=== PATIENT | female | born 1990 | race Caucasian/White ===

== ENCOUNTER 2016-11-19 22:27 | Emergency (ER) | payer MEDICAID ==
[2016-11-19] MEDS ORDERED: PYRIDOXINE 100 MG TABLET PO STA (22:33)
[2016-11-19] MEDS ORDERED: DOXYLAMINE 25 MG TABLET PO STA (22:34)
[2016-11-19] MEDS ORDERED: diphenhydrAMINE 25 MG CAPSULE PO STA (22:58)
[2016-11-19] MEDS ORDERED: ACETAMINOPHEN 500 MG TABLET PO STA (23:05)
[2016-11-19] MEDS ORDERED: diphenhydrAMINE 25 MG CAPSULE PO ONE (23:05)
[2016-11-19] MEDS ORDERED: ACETAMINOPHEN 500 MG TABLET PO ONE (23:09)
== END 2016-11-20 00:21 | disposition home or self-care (01) ==
DX: O21.0 Mild hyperemesis gravidarum (principal); Z3A.11 11 weeks gestation of pregnancy; O26.891 Other specified pregnancy related conditions, first trimester; R10.32 Left lower quadrant pain; O99.331 Smoking (tobacco) complicating pregnancy, first trimester
CPT/HCPCS: 76705; 81003; 81025; 99282; 99284; A9270

== ENCOUNTER 2016-12-26 09:46 | Outpatient (CLI) | payer MEDICAID | END 2016-12-26 09:47 | disposition home or self-care (01) | DX: Z36 Encounter for antenatal screening of mother (principal) ==

== ENCOUNTER 2017-01-27 21:19 | Outpatient (CLI) | payer MEDICAID | END 2017-01-27 23:15 | disposition home or self-care (01) | DX: O99.89 Other specified diseases and conditions complicating pregnancy, childbirth and the puerperium (principal); R10.32 Left lower quadrant pain; R10.814 Left lower quadrant abdominal tenderness; Z3A.21 21 weeks gestation of pregnancy ==

== ENCOUNTER 2017-01-31 12:04 | Outpatient (CLI) | payer MEDICAID | END 2017-01-31 12:05 | disposition home or self-care (01) | DX: Z34.82 Encounter for supervision of other normal pregnancy, second trimester (principal) ==

== ENCOUNTER 2017-03-08 09:35 | Outpatient (CLI) | payer MEDICAID | END 2017-03-08 09:36 | disposition home or self-care (01) | DX: Z36 Encounter for antenatal screening of mother (principal) ==

== ENCOUNTER 2017-03-09 09:26 | Outpatient (CLI) | payer MEDICAID | END 2017-03-09 09:27 | disposition home or self-care (01) | DX: O99.810 Abnormal glucose complicating pregnancy (principal) ==

== ENCOUNTER 2017-03-23 16:08 | Emergency (ER) | payer MEDICAID ==
[2017-03-23 16:17] VITALS: BP 125/70
[2017-03-23] MEDS ORDERED: DEXAMETHASONE 10 MG/ML VIAL PO STA (17:06)
--- NOTE | 2017-03-23 17:07 | ED Physician Documentation ---
PD HPI URI - Stated complaint Stated Complaint: SOA/COUGH - Chief complaint Chief Complaint: General - History obtained from History obtained from: Patient - History of Present Illness Timing - onset: Yesterday Timing duration: Days (2) Timing details: Gradual onset Pain level max: 5 Pain level now: 4 Associated symptoms: Fever (subjective), Nasal congestion, Sore throat, Dry cough Contributing factors: Other (29 weeks ). No: Sick contact Improves by: Rest Worsened by: Activity Recently seen: Not recently seen Review of Systems Eyes: denies: Photophobia Ears: denies: Ear pain Cardiac: denies: Chest pain / pressure Respiratory: denies: Dyspnea, Hemoptysis, Wheezing GI: reports: Vomiting (post tussive emesis x1). denies: Abdominal Pain, Nausea , Diarrhea Skin: denies: Rash Musculoskeletal: denies: Neck pain, Back pain Neurologic: denies: Headache PD PAST MEDICAL HISTORY - Past Medical History Past Medical History: No - Past Surgical History Past Surgical History: Yes HEENT: Myringotomy (tubes) - Present Medications Home Medications: Ambulatory Orders Medication Instructions Recorded Confirmed Acetaminophen [Tylenol] 650 mg PO Q6H PRN #30 tab 02/21/16 Fluticasone [Flonase] 1 sprays CHAU BID PRN #1 bottle 02/21/16 predniSONE [Deltasone] 20 mg PO DAILY 5 Days 02/21/16 Pyridoxine HCl [Vitamin B-6] 25 mg PO Q6HR PRN #20 tablet 11/19/16 - Allergies Allergies/Adverse Reactions: Allergies Allergy/AdvReac Type Severity Reaction Status Date / Time ibuprofen AdvReac Nausea Verified 03/23/17 16:16 - Social History Does the pt smoke?: No Smoking Status: Never smoker Does the pt drink ETOH?: No Does the pt have substance abuse?: No - Immunizations Immunizations are current?: Yes - POLST Patient has POLST: No PD ED PE NORMAL - Vitals Vital signs reviewed: Yes - General General: Alert and oriented X 3, No acute distress, Well developed/nourished - HEENT HEENT: PERRL, Moist mucous membranes, Other (Mild posterior oropharyngeal erythema without tonsillar exudates. Uvula midline. No trismus. Normal phonation.) - Neck Neck: Supple, no meningeal sign, No adenopathy - Cardiac Cardiac: RRR, Strong equal pulses - Respiratory Respiratory: No respiratory distress, Clear bilaterally - Abdomen Abdomen: Soft, Non tender, Non distended - Derm Derm: Warm and dry - Extremities Extremities: No edema - Neuro Neuro: Alert and oriented X 3 - Psych Psych: Normal mood, Normal affect Results - Vitals Vitals: Vital Signs - 24 hr 03/23/17 16:13 Temperature 36.8 C Heart Rate 100 Respiratory 18 Rate Blood Pressure 125/70 O2 Saturation 100 Oxygen O2 Source Room air - Labs Labs: Laboratory Tests 03/23/17 17:00 Group A Strep Rapid Negative PD MEDICAL DECISION MAKING - ED course Complexity details: reviewed results, re-evaluated patient, considered differential, d/w patient, d/w family ED course: Patient is a 26-year-old female who presents to the emergency department with what appears to be a viral URI. She is 29 weeks . Rapid strep is negative. Patient is very well-appearing, nontoxic. Afebrile. No hypoxia. Given dexamethasone here. Will follow up with her OB for further evaluation and care. Patient counseled regarding signs and symptoms for which I believe and urgent re-evaluation would be necessary. Patient with good understanding of and agreement to plan and is comfortable going home at this time This document was made in part using voice recognition software. While efforts are made to proofread this document, sound alike and grammatical errors may occur. Departure - Departure Disposition: 01 Home, Self Care Clinical Impression: URI (upper respiratory infection) Qualifiers: URI type: unspecified viral URI Qualified Code(s): J06.9 - Acute upper respiratory infection, unspecified Condition: Good Instructions: ED URI Viral Follow-Up: your,doctor in 1week [Other] Comments: Drink plenty of fluids and rest. Return if you worsen. Forms: Activity restrictions Discharge Date/Time: 03/23/17 18:12
[2017-03-23] MEDS ORDERED: DEXAMETHASONE 10 MG/ML VIAL ONE (17:19)
[2017-03-23] MEDS ORDERED: CHERRY SYRUP 10 ML UDC PO ONE (17:19)
[2017-03-23 17:35] LABS: RAPID STREP SCREEN REAGENT QC YELLOW (YELLOW)
== END 2017-03-23 18:12 | disposition home or self-care (01) ==
LOC: ED 16:08
DX: O99.513 Diseases of the respiratory system complicating pregnancy, third trimester (principal); J06.9 Acute upper respiratory infection, unspecified; B97.89 Other viral agents as the cause of diseases classified elsewhere; Z3A.29 29 weeks gestation of pregnancy
CPT/HCPCS: 87070; 87430; 99283; A9270

== ENCOUNTER 2017-04-18 16:07 | Outpatient (CLI) | payer MEDICAID ==
[2017-04-18 17:06] LABS: BILIRUBIN,URINE NEGATIVE (NEGATIVE)
[2017-04-18] MEDS ORDERED: TERBUTALINE 1 MG/ML VIAL SUBQ SCH (17:14)
[2017-04-18] MEDS ORDERED: TERBUTALINE 1 MG/ML VIAL SUBQ ONE (17:15)
[2017-04-18 17:17] LABS: UR CULTURE IF IND NOT INDICATED; WBC,URINE 0-3 /HPF (0-5)
[2017-04-18 17:39] VITALS: BP 122/66
--- NOTE | 2017-04-19 06:43 | HISTORY & PHYSICAL EXAMINATION ---
IDENTIFICATION: The patient is a 26-year-old G2, P1 female whose EDC is 06/08/2017 making her 32-6/7 weeks. CHIEF COMPLAINT: Contractions. HISTORY OF PRESENT ILLNESS: The patient states that yesterday at roughly 1700 in the evening, she dev eloped some mild tightening. She went ahead and went to work today. In the morning she was having dif ficulty with nausea. She developed some bilateral groin pain. She states at about 10:30 she developed menstrual-like cramping. She presents this evening because these have not resolved and were continui ng to get worse. She denies any fluid leak or bleeding at this time. Her last child was delivered at 39 weeks without any complications of labor. This has been complicated with an elev ated 1-hour glucose with a normal 3-hour GTT. However, her 1-hour result was 192, the remainder withi n normal limits. PHYSICAL EXAMINATION: VITAL SIGNS: The patient's vital signs are stable and normal. Her cervix is noted to be closed and long, but soft. It is posterior. fibronectin was obtained prior to her exam, as well as a group B strep. Urinalysis was significant in that she showed evidence of a specific gravity of greater than 1.030. She also had glucose in her blood at 250. She had moder ate squamous cells at this time. IMPRESSION: 1. 32.6 weeks. 2. contractions. 3. Low renal threshold for glucose storing. PLAN: fFN is pending. Will have the patient push fluids at this time, have administered 0.25 mg of te rbutaline subcutaneous. I am taking the patient off work for at least the next week. JOB #: [id number] EXT JOB #:[id number]
== END 2017-04-18 18:15 | disposition home or self-care (01) ==
LOC: WFO 16:07 → OB 16:10 → WFO 18:15
PROVIDERS: ATTEND Obstetrics & Gynecology
DX: O47.03 False labor before 37 completed weeks of gestation, third trimester (principal); O99.810 Abnormal glucose complicating pregnancy; Z3A.32 32 weeks gestation of pregnancy
CPT/HCPCS: 81001; 82731; 87081; 87086; 96372; 99213

== ENCOUNTER 2017-05-07 19:01 | Outpatient (CLI) | payer MEDICAID ==
[2017-05-07] MEDS ORDERED: TERBUTALINE 1 MG/ML VIAL SUBQ ONE ×2 (19:46→19:50)
[2017-05-07] MEDS ORDERED: TERBUTALINE 1 MG/ML VIAL SUBQ SCH (20:13)
[2017-05-07 20:25] LABS: PH,URINE 5.5 PH (5.0-7.5)
[2017-05-07 20:29] LABS: BILIRUBIN,URINE NEGATIVE (NEGATIVE); UA CHARGE (STRIP ONLY) YES; UR CULTURE IF IND NOT INDICATED
[2017-05-07] MEDS ORDERED: NIFEdipine ER 90 MG TABLET PO SCH (21:02)
[2017-05-07] MEDS ORDERED: NIFEdipine ER 30 MG TABLET PO SCH (21:25)
[2017-05-07 21:47] VITALS: BP 129/71
[2017-05-08] MEDS ORDERED: NIFEdipine ER 90 MG TABLET PO SCH (09:00)
== END 2017-05-07 22:23 | disposition home or self-care (01) ==
LOC: WFO 19:01 → OB 19:02 → WFO 22:23
PROVIDERS: ATTEND Obstetrics & Gynecology
DX: O47.03 False labor before 37 completed weeks of gestation, third trimester (principal); Z3A.35 35 weeks gestation of pregnancy
CPT/HCPCS: 81003; 87797; 96372; 99213; A9270; 81001; 87086

== ENCOUNTER 2017-05-20 00:11 | Outpatient (CLI) | payer MEDICAID | END 2017-05-20 01:15 | disposition home or self-care (01) | DX: O47.1 False labor at or after 37 completed weeks of gestation (principal); Z3A.37 37 weeks gestation of pregnancy ==

== ENCOUNTER 2017-05-28 10:38 | Outpatient (CLI) | payer MEDICAID ==
[2017-05-28 12:01] VITALS: BP 119/74
== END 2017-05-28 12:15 | disposition home or self-care (01) ==
LOC: WFO 10:38 → OB 10:39 → WFO 12:15
PROVIDERS: ATTEND Obstetrics & Gynecology
DX: O47.1 False labor at or after 37 completed weeks of gestation (principal); Z3A.38 38 weeks gestation of pregnancy
CPT/HCPCS: 99212

== ENCOUNTER 2017-05-30 01:15 | Outpatient (CLI) | payer MEDICAID ==
[2017-05-30 01:30] VITALS: BP 143/77
== END 2017-05-30 02:55 | disposition home or self-care (01) ==
LOC: WFO 01:15 → OB 01:17 → WFO 02:55
PROVIDERS: ATTEND Obstetrics & Gynecology
DX: Z34.83 Encounter for supervision of other normal pregnancy, third trimester (principal)
CPT/HCPCS: 99213

== ENCOUNTER 2017-06-06 19:31 | Inpatient (IN) | payer MEDICAID ==
[2017-06-06] MEDS ORDERED: SODIUM CHLORIDE FLUSH 0.9% 10 ML SYRINGE IVP PRN ×2 (19:59→20:01)
[2017-06-06] MEDS ORDERED: ONDANSETRON 4 MG/2 ML VIAL IVP PRN ×2 (19:59→22:12)
[2017-06-06] MEDS ORDERED: fentaNYL 100 MCG/2 ML VIAL IVP PRN (19:59)
[2017-06-06] MEDS ORDERED: LACTATED RINGERS 1,000 ML IV SCH (20:00)
[2017-06-06 20:43] LABS: BASOPHILS # (AUTO) 0.1 10^3/uL (0.0-0.1); BASOPHILS % (AUTO) 0.5 %; EOSINOPHILS # (AUTO) 0.1 10^3/uL (0.0-0.7); EOSINOPHILS % (AUTO) 1.2 %; HGB - HEMOGLOBIN 12.9 g/dL (12.0-16.0); LYMPHOCYTES # (AUTO) 1.6 10^3/uL (1.5-3.5); LYMPHOCYTES % (AUTO) 13.1 %; MEAN CORPUSCULAR HEMOGLOBIN 31.6 pg (27.0-31.0); MEAN CORPUSCULAR HGB CONC 33.8 g/dL (32.0-36.0); MEAN CORPUSCULAR VOLUME 93.3 fL (81.0-99.0); MEAN PLATELET VOLUME 10.5 fL (7.9-10.8); MONOCYTES # (AUTO) 0.6 10^3/uL (0.0-1.0); MONOCYTES % (AUTO) 4.8 %; NEUTROPHILS # (AUTO) 9.9 10^3/uL (1.5-6.6); NEUTROPHILS % (AUTO) 80.4 %; RED BLOOD COUNT 4.07 10^6/uL (4.20-5.40); RED CELL DISTRIBUTION WIDTH 13.7 % (12.0-15.0); UNCORRECTED WHITE BLOOD COUNT 12.3 x10^3/uL; WHITE BLOOD COUNT 12.3 x10^3/uL (4.8-10.8)
--- NOTE | 2017-06-06 20:48 | HISTORY & PHYSICAL EXAMINATION ---
Admit History - Instructions [place]/Slash: -Left hand click circles element as positive or present. -Right hand click slashes element as negative or not present. - Visit Reason Visit Reason: Contractions (Contractions started about 19:[address] to the Hospital.), Membranes rupture (SROM at 1900. clear fluid. notes good FM. Pt is known to be A-. recieved RhoGam. Elivated 50 Gm. Normal 3 hour GTT except for single elivated 1 hour. Rhubella nonimmune. 12 hour first labor 9 years ago.) - : 2 Parity: 1 Premature: 0 Ectopic: 0 : 0 Care: positive: [facility] Smoking Status: Never smoker - Mother's Labs Mother's Blood Type: positive: A Mother's RH: positive: Negative GBS: positive: Group B Step Negative Rubella Status: positive: Non-immune Meds/Allgy - Home Medications Home Medications: Ambulatory Orders Medication Instructions Recorded Confirmed Acetaminophen [Tylenol] 650 mg PO Q6H PRN #30 tab 02/21/16 Fluticasone [Flonase] 1 sprays CHAU BID PRN #1 bottle 02/21/16 predniSONE [Deltasone] 20 mg PO DAILY 5 Days 02/21/16 Pyridoxine HCl [Vitamin B-6] 25 mg PO Q6HR PRN #20 tablet 11/19/16 - Allergies Allergies/Adverse Reactions: Allergies Allergy/AdvReac Type Severity Reaction Status Date / Time ibuprofen AdvReac Nausea Verified 03/23/17 16:16 Physical - Abdominal Exam Contraction Intensity: positive: Moderate to strong Uterine Resting Tone: positive: Soft - Monitoring Heart Rate Baseline: 130 Strip Review: positive: Category I - Presentation Presentation: positive: Vertex - Vaginal Exam Membranes: positive: Membranes ruptured Dilation (in cm): 5 Effacement (%): 90 Station: positive: 0 Cervical Position: positive: Posterior - Speculum Exam Speculum Exam Performed: positive: No Findings: positive: Gross leak - Other Notes Labor Progress Note/Additional Text: 1. 39.6 weeks. 2. SROM and active labor. 3. GBS negative 4. A Negative 5. Rhubella nonimmune Plan 1. Epidural. 2.
[2017-06-06] MEDS: LACTATED RINGERS 1,000 ML IV SCH ×2 (21:16→21:44)
[2017-06-06] MEDS ORDERED: fentaNYL 100 MCG/2 ML VIAL ONE (21:28)
[2017-06-06] MEDS ORDERED: fent/BUPIV 2 MCG/0.125% 250 ML EP ONE (21:29)
[2017-06-06] MEDS ORDERED: ROPIVACAINE 0.2% PF 10 ML VIAL EPI ONE (21:55)
[2017-06-06] MEDS ORDERED: SODIUM CHLORIDE FLUSH 0.9% 10 ML SYRINGE IVP SCH (22:00)
[2017-06-06] MEDS ORDERED: NALOXONE 0.4 MG/ML VIAL IVP PRN (22:12)
[2017-06-06] MEDS ORDERED: METOCLOPRAMIDE 10 MG/2 ML VIAL IVP PRN (22:12)
[2017-06-06] MEDS ORDERED: diphenhydrAMINE INJ 50 MG/ML VIAL IVP PRN (22:12)
[2017-06-06] MEDS ORDERED: fent/BUPIV 2 MCG/0.125% 250 ML EP PRN (22:12)
[2017-06-06] MEDS ORDERED: ePHEDrine 50 MG/ML AMP IVP PRN (22:12)
[2017-06-06] MEDS ORDERED: LACTATED RINGERS 500 ML IV ONE (22:12)
[2017-06-06] MEDS ORDERED: NALBUPHINE 20 MG/ML AMP IVP PRN (22:12)
[2017-06-07] MEDS ORDERED: LIDOCAINE 1% 50 ML MDV SUBQ SCH (00:11)
[2017-06-07] MEDS ORDERED: MEASLES,MUMPS & RUBELLA VACC 0.5 ML VIAL SUBQ ONE (01:55)
[2017-06-07] MEDS ORDERED: diphenhydrAMINE 25 MG CAPSULE PO PRN (01:55)
[2017-06-07] MEDS ORDERED: oxyCODONE 5 MG TABLET PO PRN (01:55)
[2017-06-07] MEDS ORDERED: RHO(D) IMMUNE GLOBULIN 300 MCG SYRINGE IM SCH (01:55)
[2017-06-07] MEDS ORDERED: HYDROCORTISONE/PRAMOXINE 10 GM PR PRN (01:55)
[2017-06-07] MEDS ORDERED: HYDROCORTISONE 1% CREAM 28 GM TUBE PR PRN (01:55)
[2017-06-07] MEDS ORDERED: OXYTOCIN/LACTATED RINGERS 250 ML IV ONE (01:55)
[2017-06-07] MEDS ORDERED: IBUPROFEN 800 MG TABLET PO SCH (02:00)
[2017-06-07] MEDS ORDERED: LACTATED RINGERS 1,000 ML IV SCH (02:00)
--- NOTE | 2017-06-07 02:03 | DELIVERY NOTE ---
Delivery Note - Labor Labor: positive: Spontaneous - Delivery Method Delivery Method: positive: Vacuum assist - Presentation Presentation: positive: Vertex, LOP - left occiput posterior - Nuchal Cord Nuchal Cord: positive: None - Anesthetic Anesthetic Type: - Amniotic Fluid Description Amniotic Fluid Description: positive: Clear - Vacuum Use Indication for Vacuum Use: positive: Shortening of 2nd stage for maternal benefit Type of Vacuum Cup: positive: Cup: Rigid Vacuum Extraction: positive: Successful Number of pop-offs: 0 - Episiotomy Type Episiotomy Type: positive: None - Laceration Laceration: positive: None - Delivery Outcome Delivery Outcome: positive: Livebirth - [place]: positive: Suctioned, Bulb syringe, Stimulated sex: positive: Male - Cord Cord: positive: 3 vessels - Placenta Placenta: positive: Intact, Spontaneous - Estimated Blood Loss Estimated Blood Loss (in cc): 200 - Post Delivery Events Post Delivery Events: positive: No post delivery events - Delivery Comments (Free Text/Narrative) Delivery Comments (Free Text/Narrative): Pt reached complete and pushed well however the baby was LOP and at maternal request a vacuum was applied at +2 and pulled with 2 contractions and the baby was easly delivered. placenta soon followed in tact.
[2017-06-07] MEDS: ACETAMINOPHEN 500 MG TABLET PO SCH ×3 (03:41→20:46)
[2017-06-07] MEDS: WITCH HAZEL/GLYCERIN 1 EACH MED..PAD TOP PRN (03:41)
[2017-06-07] MEDS: DOCUSATE SODIUM 100 MG CAPSULE PO SCH ×2 (08:09→20:47)
--- NOTE | 2017-06-07 09:10 | PROVIDER PROGRESS NOTE ---
Subjective - Prog Note Date Prog Note Date: 06/07/17 Prog Note Time: 09:08 - Subjective Pt reports feeling: Improved (S/P Vaccume vaginal delivery for OP. Pain /10 doing well breast feeding. Baby Rh positive) Objective - Vital Signs/Intake & Output Reviewed Vital Signs: Yes Vital Signs: Vital Signs x48h Temp Pulse Resp BP Pulse Ox 06/07/17 08:46 36.6 C 73 14 107/59 L 98 06/07/17 04:54 36.8 C 97 18 113/54 L 97 06/07/17 03:45 91 18 122/59 L 06/07/17 03:30 102 H 20 118/54 L 06/07/17 03:15 93 16 119/60 06/07/17 03:00 86 16 118/62 06/07/17 02:45 92 20 110/52 L 06/07/17 02:30 37.7 C H 89 18 109/65 06/07/17 02:16 88 18 110/58 L 06/07/17 02:10 97 18 116/53 L 06/07/17 01:46 103 H 20 110/56 L 06/07/17 01:39 20 Intake & Output: Intake & Output 06/04/17 06/05/17 06/06/17 06/07/17 23:59 23:59 23:59 23:59 Intake Total 3740 Output Total 400 450 Balance -400 3290 - Objective General Appearance: positive: No acute distress, Alert Eyes Bilateral: positive: Normal inspection, PERRL Respiratory: positive: Chest non-tender, No respiratory distress, Breath sounds nml Cardiovascular: positive: Regular rate & rhythm, No murmur Abdomen: positive: Non-tender, No organomegaly, Mass (U-1) Extremities: negative: Calf tenderness, Margie's sign/cords - Lab Results Fish Bones: 06/07/17 05:25 Other Labs: Lab Results x24hrs 06/07/17 06/06/17 Range/Units 05:25 20:29 WBC 12.3 H (4.8-10.8) x10^3/uL RBC 4.07 L (4.20-5.40) 10^6/uL Hgb 12.0 12.9 (12.0-16.0) g/dL Hct 38.0 (37.0-47.0) % MCV 93.3 (81.0-99.0) fL MCH 31.6 H (27.0-31.0) pg MCHC 33.8 (32.0-36.0) g/dL RDW 13.7 (12.0-15.0) % Plt Count 151 (130-450) 10^3/uL MPV 10.5 (7.9-10.8) fL Neut # 9.9 H (1.5-6.6) 10^3/uL Lymph # 1.6 (1.5-3.5) 10^3/uL [place] # 0.6 (0.0-1.0) 10^3/uL Eos # 0.1 (0.0-0.7) 10^3/uL Baso # 0.1 (0.0-0.1) 10^3/uL Absolute Nucleated RBC 0.00 x10^3/uL Nucleated RBCs 0.0 /100WBC Assessment/Plan - Problem List (1) Vacuum extractor delivery, delivered Impression: Pt is doing well. baby is Rh positive. pt to receive RhoGam
[2017-06-08] MEDS ORDERED: MEASLES,MUMPS & RUBELLA VACC 0.5 ML VIAL SUBQ ONE (04:18)
[2017-06-08] MEDS ORDERED: RHO(D) IMMUNE GLOBULIN 300 MCG SYRINGE ONE (04:19)
[2017-06-08] MEDS: ACETAMINOPHEN 500 MG TABLET PO SCH ×2 (04:46→12:36)
[2017-06-08 08:17] VITALS: BP 112/55
--- NOTE | 2017-06-08 08:25 | Discharge Plan ---
Discharge Plan Disposition: 01 Home, Self Care Condition: Good Diet: Regular Activity Restrictions: Activity as Tolerated Shower Restrictions: No Driving Restrictions: No Weight Bearing: Full Weight No Smoking: If you smoke, Please STOP! Call for help. Follow-up with: Charbel Faith MD [Provider Admit Priv/Credential] -
[2017-06-08] MEDS: DOCUSATE SODIUM 100 MG CAPSULE PO SCH (08:55)
[2017-06-08] MEDS: WITCH HAZEL/GLYCERIN 1 EACH MED..PAD TOP PRN (08:55)
--- NOTE | 2017-06-08 11:27 | DISCHARGE SUMMARY ---
DATE OF ADMISSION: 06/06/2017 DATE OF DISCHARGE: 06/08/2017 DIAGNOSES: 1. Term in labor. 2. Maternal blood type Rh negative. 3. Maternal fatigue in second stage of labor. 4. noted to be LOP. PROCEDURES: Vacuum assisted vaginal delivery, living male infant. (DR FAITH) The patient is a 26-year-old 2, para 1-0-0-1 woman who presented in labor with ruptured membranes. Reference Dr. Faith's admission note. Reference records from the clinic. Labs: Blood type A, negative antibody screen negative, received 28 week RhoGAM, RPR negative, hepatitis B surface antigen negative. Rubella nonreactive, HIV negative, GC and chlamydia negative. Elevated 1-hour glucose tolerance test 150, 3-hour test normal. GBS negative. HOSPITAL COURSE: The patient smoothly progressed to completion and began to push with good effort. Initially the was noted to be LOP, and uneventful vacuum delivery was used to facilitate. Al iving male infant was born weighing 7 lbs 9.4 oz and Apgars 7/9 . Total blood loss 200 and placenta delivered intact. Postoperatively patient did well. Baseline hemoglobin 12.9, post delivery hemoglobin 12.0. The patient nursed well and rapidly regained full diet and activity. She was prepared for discharge. She will report any fever, foul discharge, excessive bleeding or pain. She is successful with nursing and will continue the same. She will be seen in the clinic in 6 weeks. DISCHARGE MEDICATIONS: 1. Motrin over the counter. 2. vitamins and iron. JOB #: [id number] EXT JOB #:[id number] [facility]
--- NOTE | 2017-06-08 15:51 | Labor Flowsheet ---
Labor Flowsheet Datetime Report Generated by CPN: 06/08/2017 15:50 Datetime: 06/08/2017 08:16 VITAL SIGNS NBP Sys/[place]/Mean (mmHg): 112 : 55 : 67 Pulse: 77 LaborFlag: Labor Datetime: 06/08/2017 07:40 Temperature (F): 97.2 Temperature (C): 36.2 Temperature (C): 36.2 Datetime: 06/07/2017 19:35 SpO2 (%): 100 Datetime: 06/07/2017 01:32 UTERINE ACTIVITY Monitor Mode: External Frequency (min): 2 Quality: Strong Duration (sec): 60 Resting Tone (Palpate): Relaxed ASSESSMENT A Monitor Mode: External US FHR Baseline Rate : Indeterminate Variability: Moderate 6-25 bpm Accelerations: None Decelerations: Prolonged Category: Category II Comments: Vacuum assisted delivery of a viable male infant. KIWI placed and controlled per Dr Faith Delivery with 2 pulls and no pop offs for a total of about 55 seconds of pull time total. Baby to Mom's lower abd. Dried and stimulated. Delayed cord clamping x 3 minutes. Cord double clamped per and cut per [place]. Datetime: 06/07/2017 01:31 Pushing Position: Pushing with Contractions Pushing Progress: Descent with Pushing; Pushing Effectively with Contractions Vacuum: On; Off (Annotations: Vacuum on about 20 seconds, head delivered and vacuum removed) Datetime: 06/07/2017 01:30 Station Vacuum/Forceps Applied: Datetime: 06/07/2017 00:15 STAGE 2 Pushing: Coached on Pushing; Urge to Push Datetime: 06/07/2017 00:04 VAGINAL EXAM Dilatation (cm): 10.0 Effacement (%): 100 Station: 1 Exam by: Dr Giem Datetime: 06/06/2017 23:45 Actions for Decelerations: Sterile Vaginal Exam COMMUNICATION Communication: Call/Page Placed to Provider Provider Notified (Name): Dr Giem Notification Reason: Status Update; Labor Status Communication Comments: Patient has an small rim of cervix left and feeling pressure with contracti ons. Dr Faith called to come for delivery and patient only pushed for 10 minutes with first baby. Datetime: 06/06/2017 23:30 PATIENT CARE Patient Position/Activity: Left Lateral Hygiene: Valarie Care; Underpad Changed I/O Interventions: Straight Cath (ml) @ (Annotations: 250 gold urine) Strip Reviewed by: Elin Zhao RNC Datetime: 06/06/2017 23:29 Membrane Status: Ruptured Amniotic Fluid Color: Clear Amniotic Fluid Amount: Moderate Amniotic Fluid Odor: Normal Vaginal Bleeding: Normal Show Datetime: 06/06/2017 22:15 Respirations: 18 PAIN Pain Scale: 0 Pain Presence: None/Denies Pain Type: N/A Pain Relief Measures: Epidural Given Pain Coping: Talking Through Contractions Pain Assessment Comments: epidural working well Anesthesia Level Check: T6- Xyphoid Datetime: 06/06/2017 22:00 Monitor Interventions for FHR: Ultrasound Adjusted Datetime: 06/06/2017 21:56 Epidural Procedure Other: Pump Started Datetime: 06/06/2017 21:48 Epidural Procedure: Loading Dose Datetime: 06/06/2017 21:45 Medication Comments: LR at 150 MLs/hr Datetime: 06/06/2017 21:28 ANESTHESIA Anesthesia Plans: Epidural Anesthesia Interview: I Epidural Positioning: Sitting Anesthesia Comments: explaining epidural, risks and what to expect Datetime: 06/06/2017 20:45 MEDICATIONS Analgesics/Sedatives: Fentanyl (mcg) @ (Annotations: 50)
== END 2017-06-08 15:40 | disposition home or self-care (01) | DRG 775 ==
LOC: WFO 19:31 → FBP 19:37 → WFO 20:00 → FBP 20:01
PROVIDERS: ADMIT Obstetrics & Gynecology; ATTEND Obstetrics & Gynecology
PROC: 10D07Z6 Extraction of Products of Conception, Vacuum, Via Natural or Artificial Opening (ICD-10-PCS; principal; 2017-06-07)
DX: O26.893 Other specified pregnancy related conditions, third trimester (principal); O75.81 Maternal exhaustion complicating labor and delivery; O32.8XX0 Maternal care for other malpresentation of fetus, not applicable or unspecified; Z67.11 Type A blood, Rh negative; Z3A.39 39 weeks gestation of pregnancy; Z37.0 Single live birth
CPT/HCPCS: 36415; 51701; 83033; 85018; 85025; 86900; 86901

== ENCOUNTER 2020-04-13 07:00 | Outpatient (CLI) | payer MEDICAID ==
[2020-04-13 21:44] LABS: TRICHOMONAS VAGINALIS DNA NEGATIVE (NEGATIVE)
== END 2020-04-13 23:59 | disposition home or self-care (01) ==
LOC: LAB.R 07:00
PROVIDERS: ATTEND Obstetrics & Gynecology
DX: Z01.419 Encounter for gynecological examination (general) (routine) without abnormal findings (principal); Z11.3 Encounter for screening for infections with a predominantly sexual mode of transmission
CPT/HCPCS: 87491; 87591; 87661

== ENCOUNTER 2020-10-09 15:55 | Emergency (ER) | payer MEDICAID ==
[2020-10-09 16:09] VITALS: BP 144/78
[2020-10-09] MEDS ORDERED: DEXAMETHASONE 10 MG/ML VIAL PO STA (16:18)
[2020-10-09] MEDS ORDERED: oxyCODONE 5 MG TABLET PO STA (16:18)
--- NOTE | 2020-10-09 16:24 | ED Physician Documentation ---
PD HPI BACK PAIN - Stated complaint Stated Complaint: RT SIDE PX - Chief complaint Chief Complaint: Ext Problem - History obtained from History obtained from: Patient - History of Present Illness Timing - onset: How many weeks ago (1) Timing - duration: Weeks (1) Timing - details: Gradual onset Pain level max: 9 Pain level now: 9 Location: Lower, Right Quality: Pain. No: Spasm Associated symptoms: Other (radiates to the R thigh). No: Fever, Weakness, Numbness, Incontinent of urine, Unable to urinate, Hematuria Improves with: Rest Worsened by: Movement, Lifting Contributing factors: No: Lifting, Twisting, Trauma, Anticoagulated, Cancer, IVDA, Out of meds Similar symptoms before: Has not had sx before Recently seen: Not recently seen - Additional information Additional information: 29-year-old female presents to the emergency department with right low back pain radiating to the right hip. Worse with movement, better with rest. No loss of bowel or bladder control. No IV drug use. No fevers. No trauma. Review of Systems Ten Systems: 10 systems reviewed and negative Constitutional: denies: Fever, Chills Respiratory: denies: Cough GI: denies: Vomiting, Diarrhea : reports: Other (Has an IUD). denies: Dysuria, Frequency, Hesitancy, Incontinent, Now EGA Skin: denies: Rash Musculoskeletal: denies: Neck pain, Back pain Neurologic: denies: Headache PD PAST MEDICAL HISTORY - Past Medical History Past Medical History: No - Past Surgical History Past Surgical History: Yes HEENT: Myringotomy (tubes) - Present Medications Home Medications: Ambulatory Orders Medication Instructions Recorded Confirmed Acetaminophen [Tylenol] 650 mg PO Q6H PRN #30 tab 02/21/16 06/07/17 Terbutaline Sulfate 2.5 mg PO QID 06/07/17 06/07/17 Oxycodone HCl/Acetaminophen 1 - 2 each PO Q6H PRN #14 tablet 10/09/20 [Percocet 5-325 mg Tablet] predniSONE [Deltasone] 40 mg PO DAILY #10 tablet 10/09/20 - Allergies Allergies/Adverse Reactions: Allergies Allergy/AdvReac Type Severity Reaction Status Date / Time ibuprofen AdvReac Nausea Verified 10/09/20 16:09 - Living Situation Living Arrangement: reports: At home - Social History Does the pt smoke?: No Smoking Status: Never smoker Does the pt drink ETOH?: No Does the pt have substance abuse?: No - Immunizations Immunizations are current?: Yes - POLST Patient has POLST: No PD ED PE NORMAL - Vitals Vital signs reviewed: Yes - General General: Alert and oriented X 3, No acute distress, Well developed/nourished - HEENT HEENT: Moist mucous membranes - Neck Neck: Supple, no meningeal sign, No bony TTP - Cardiac Cardiac: RRR, Strong equal pulses - Respiratory Respiratory: No respiratory distress, Clear bilaterally - Abdomen Abdomen: Soft, Non tender, Non distended - Back Back: No spinal TTP (No midline tenderness to palpation or percussion. Tender to palpation over the right sacroiliac joint. No muscle spasm.) - Derm Derm: Warm and dry - Extremities Extremities: Normal ROM s pain, Other (Normal bilateral lower extremity patellar and ankle jerk reflexes. Normal great toe extension bilaterally. no saddle anesthesia) - Neuro Neuro: Alert and oriented X 3, vacuum technician 2-12 intact, No motor deficit, No sensory deficit - Psych Psych: Normal mood, Normal affect Results - Vitals Vitals: Vital Signs - 24 hr 10/09/20 16:05 Temperature 36.5 C Heart Rate 97 Respiratory 17 Rate Blood Pressure 144/78 H O2 Saturation 100 Oxygen O2 Source Room air PD MEDICAL DECISION MAKING - ED course Complexity details: considered differential (No cauda equina, no spinal epidural abscess, no fracture, no aortic dissection or evidence of aneursym rupture), d/w patient ED course: 29-year-old female with what appears to be sciatica. She is allergic to NSAIDs. Given Percocet and Decadron here. We will start her on a steroid taper as well as a short course of pain medication for home. We will have her follow-up with her doctor for further care. No evidence of cauda equina, epidural abscess. No paralysis. No acute neurological deficits. Patient counseled regarding signs and symptoms for which I believe and urgent re-evaluation would be necessary. Patient with good understanding of and agreement to plan and is comfortable going home at this time This document was made in part using voice recognition software. While efforts are made to proofread this document, sound alike and grammatical errors may occur. Departure - Departure Disposition: 01 Home, Self Care Clinical Impression: Sciatica Qualifiers: Laterality: right Qualified Code(s): M54.31 - Sciatica, right side Condition: Good Instructions: ED Sciatica Follow-Up: your,doctor in 1 week [Other] Prescriptions: predniSONE [Deltasone] 40 mg PO DAILY #10 tablet Oxycodone HCl/Acetaminophen [Percocet 5-325 mg Tablet] 1 - 2 each PO Q6H PRN #14 tablet PRN Reason: pain Comments: Use the medications as prescribed. Return if you worsen. Follow-up with your doctor within 1 week for repeat evaluation. Continue to gently stretch the area. Do not drink alcohol or drive while on narcotic pain medicine. Note that many narcotic pain relievers also contain tylenol/acetaminophen. Please ensure that your total dose of acetaminophen from all sources does not exceed 3 grams (3000mg) per day. You may constipated on this medication, take a stool softener such as "Colace" twice a day while you are on it. Also recommend a [id number] laxative such as senna or MiraLAX any day that you do not have a bowel movement. If you received narcotic pain medication in the emergency department, do not drive or operate machinery for the next 24 hours.
== END 2020-10-09 16:37 | disposition home or self-care (01) ==
LOC: ED 15:55
DX: M54.41 Lumbago with sciatica, right side (principal); Z88.8 Allergy status to other drugs, medicaments and biological substances; Z97.5 Presence of (intrauterine) contraceptive device
CPT/HCPCS: 99282; 99284; A9270

== ENCOUNTER 2022-03-14 17:34 | Emergency (ER) | payer OTHER, MEDICAID ==
[2022-03-14] MEDS ORDERED: LIDOCAINE 1% 2 ML VIAL SUBQ STA (18:06)
--- NOTE | 2022-03-14 18:09 | ED Physician Documentation ---
History of Present Illness - Stated complaint Stated Complaint: NECK AND SHOULDER PX - Chief complaint Chief Complaint: Ext Problem - Additonal information Additional information: 31-year-old female presents emergency department for evaluation of right-sided neck and shoulder pain. Reports that she woke up 3 mornings ago with this. Since then pain has gotten progressively worse with some radiation to the right arm. No paresthesias. No history of recent falls or trauma but she has occasionally had a stiff neck after waking up that resolves after Tylenol. She does have an ibuprofen allergy. She has no fevers. No muscle weakness. 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: None : None HEENT: None Psych: None Musculoskeletal: None Derm: None - Past Surgical History Past Surgical History: Yes General: Cholecystectomy HEENT: Myringotomy (tubes) - Present Medications Home Medications: Ambulatory Orders Medication Instructions Recorded Confirmed Acetaminophen [Tylenol] 650 mg PO Q6H PRN #30 tab 02/21/16 03/14/22 Cyclobenzaprine [Flexeril] 10 mg PO BID #10 tablet 03/14/22 HYDROcod/ACETAM 5/325 [Spencer 5/325] 1 tablet PO BID PRN #5 tablet 03/14/22 - Allergies Allergies/Adverse Reactions: Allergies Allergy/AdvReac Type Severity Reaction Status Date / Time ibuprofen AdvReac Nausea Verified 03/14/22 17:44 - Social History Does the pt smoke?: No Smoking Status: Never smoker Does the pt drink ETOH?: No Does the pt have substance abuse?: No - Immunizations Immunizations are current?: Yes - POLST Patient has POLST: No PD ED PE EXPANDED - General General: Alert, No acute distress - Neck Neck: Other (Patient is able to fully range neck in all planes though painful. Tenderness is elicited of the body of the trapezius at the level of the shoulder with extension of pain ascending into the right side of the neck and down the right arm. No swelling or erythema.) - Cardiac Cardiac: Regular Rate, Radial strong equal, Pedal strong equal, Cap refill < 2 sec Results - Vitals Vitals: Vital Signs - 24 hr 03/14/22 17:44 Temperature 37.1 C Heart Rate 108 H Respiratory 16 Rate Blood Pressure 142/80 H O2 Saturation 100 Oxygen O2 Source Room air PD MEDICAL DECISION MAKING - ED course Complexity details: reviewed results, re-evaluated patient, considered differential, d/w patient ED course: 31-year-old female presents emergency department for evaluation of 3 days right- sided neck pain. No falls or trauma. No fevers. She has preserved flexion extension and lateral rotation. I suspect trapezius muscle spasm. She was given a lidocaine injection into the body of the trapezius with marked improvem ent in symptoms. Patient will be discharged home with a prescription for some muscle relaxer as well as hydrocodone. Given lack of fevers falls or trauma we did Due for imaging. If at any point her symptoms worsen she will return immediately to the emergency department. I am prescribing a short course of short-acting opioid pain medication for this patient. I have reviewed the patients [employer] and no concerning findings were noted. I have discussed that the opioids are for short term therapy only, and will not be refilled from the ED. Departure - Departure Disposition: 01 Home, Self Care Clinical Impression: Neck pain on right side Condition: Stable Record reviewed to determine appropriate education?: Yes Prescriptions: Cyclobenzaprine [Flexeril] 10 mg PO BID #10 tablet HYDROcod/ACETAM 5/325 [Spencer 5/325] 1 tablet PO BID PRN #5 tablet PRN Reason: Pain Comments: Cristin seymour are seen today in the emergency department for pain on the right side of your neck that began after he woke up a few mornings ago. I suspect that you have spasm or strain on the outside of the neck. Here in the emergency department we did inject some lidocaine into the body of the trapezius muscle in an effort to see if we could get the spasm under control. It seems to have worked somewhat. I have sent a prescription for a very limited amount of hydrocodone and a muscle relaxer to [facility] [place]. I do recommend ice or heat whichever feels better. If any point you find that symptoms are worsening, you develop fevers, have redness or swelling, or weakness in your arms then please return immediately to the ER for a second evaluation. I am prescribing a short course of narcotic pain medication for you. These are potentially dangerous and addictive medications that should be used carefully. These medications may constipate you. Take an tvor-xaa-mmxsycy stool softener (docusate) twice daily with plenty of water while taking these medications. If you go 24 hours without a bowel movement, take [id number] miralax, per package instructions. Do not drink or drive while taking these medications. If you received narcotic or sedating medications while in the emergency department, do not drive for 24 hours. Store this medication in a safe, secure place and out of reach of children. It is a violation of federal law to give or sell this medication to another person or to use in a manner other than prescribed. The ED will not refill narcotic prescriptions, including prescriptions lost or stolen. To dispose of unwanted medications: 1. [facility] at [address] [facility] in [place] has a medication drop box. They accept prescription medications (in pill form) Sunday through Sunday 9:00 a.m. to 5:00 p.m. 2. The [facility] [employer] [facility] accepts prescription medications (in pill form only) for disposal year round. Call for more information. 3. Contact the [facility] for the next [facility] sponsored prescription drug collection event. , [phone], or [phone]; Note that many narcotic pain relievers also contain Tylenol/acetaminophen. Please ensure that your total dose of acetaminophen from all sources does not exceed 3 g (3000 mg) per day.
[2022-03-14] MEDS ORDERED: HYDROmorphone 1 MG/ML CARPUJECT IM STA (18:15)
[2022-03-14 18:56] VITALS: BP 130/82
== END 2022-03-14 19:04 | disposition home or self-care (01) ==
LOC: ED 17:34
DX: M54.2 Cervicalgia (principal)
CPT/HCPCS: 96372; 99282; 99283; J1170

== ENCOUNTER 2022-09-27 19:08 | Outpatient (CLI) | payer OTHER, MEDICAID ==
--- NOTE | 2022-09-28 16:26 | XRAY Report ---
PROCEDURE: Lumbar Spine 2 View INDICATIONS: SCIATICA, RIGHT TECHNIQUE: 2 views of the lumbar spine were acquired. COMPARISON: None. FINDINGS: Bones: 5 [id number] vertebrae are present. There is normal bony alignment. No vertebral body compression fractures. No suspicious bony lesions. Soft tissues: Overlying bowel gas pattern is normal. No suspicious soft tissue calcifications. IMPRESSION: Unremarkable radiographic examination of lumbar spine. Reviewed by: Willam Spicer MD on 09/28/2022 4:25 PM PST Approved by: Willam Spicer MD on 09/28/2022 4:25 PM PST Station ID: [id number]
== END 2022-09-27 19:09 | disposition home or self-care (01) ==
LOC: DI 19:08
PROVIDERS: ATTEND Family Medicine
DX: M54.31 Sciatica, right side (principal)